=== PATIENT | female | born 1990 | race Caucasian/White ===

== ENCOUNTER 2020-02-17 11:31 | Outpatient (CLI) | payer BC | END 2020-02-17 11:32 | disposition home or self-care (01) | LOC: COV 11:31 | PROVIDERS: ATTEND Family Medicine | DX: Z20.828 Contact with and (suspected) exposure to other viral communicable diseases (principal) ==

== ENCOUNTER 2021-03-11 08:00 | Outpatient (CLI) | payer BC ==
[2021-03-11 17:46] LABS: BASOPHILS # (AUTO) 0.1 10^3/uL (0.0-0.1); BASOPHILS % (AUTO) 0.9 %; EOSINOPHILS # (AUTO) 0.1 10^3/uL (0.0-0.7); EOSINOPHILS % (AUTO) 2.5 %; HCT - HEMATOCRIT 41.3 % (37.0-47.0); HGB - HEMOGLOBIN 13.3 g/dL (12.0-16.0); LYMPHOCYTES # (AUTO) 1.9 10^3/uL (1.5-3.5); LYMPHOCYTES % (AUTO) 34.2 %; MEAN CORPUSCULAR HEMOGLOBIN 27.4 pg (27.0-31.0); MEAN CORPUSCULAR HGB CONC 32.2 g/dL (32.0-36.0); MONOCYTES # (AUTO) 0.5 10^3/uL (0.0-1.0); MONOCYTES % (AUTO) 8.3 %; NEUTROPHILS % (AUTO) 53.9 %; PLT - PLATELET COUNT 248 10^3/uL (130-450); RED BLOOD COUNT 4.86 10^6/uL (4.20-5.40); RED CELL DISTRIBUTION WIDTH 12.5 % (12.0-15.0); WHITE BLOOD COUNT 5.6 x10^3/uL (4.8-10.8)
[2021-03-11 18:10] LABS: ALBUMIN 5.1 g/dL (3.2-5.5); ALBUMIN/GLOBULIN RATIO 1.8 (1.0-2.2); BILIRUBIN,TOTAL 0.9 mg/dL (0.2-1.0); CALCIUM 9.9 mg/dL (8.5-10.3); CREATININE 0.6 mg/dL (0.4-1.0); POTASSIUM 4.3 mmol/L (3.5-5.0); TOTAL PROTEIN 7.9 g/dL (6.7-8.2)
[2021-03-11 19:20] LABS: THYROID STIMULATING HORMONE 2.08 uIU/mL (0.34-5.60)
== END 2021-03-11 23:59 | disposition home or self-care (01) ==
LOC: LAB.S 08:00
PROVIDERS: ATTEND Physician Assistant
DX: R00.2 Palpitations (principal); Z86.2 Personal history of diseases of the blood and blood-forming organs and certain disorders involving the immune mechanism
CPT/HCPCS: 36415; 80053; 84443; 85025

== ENCOUNTER 2023-01-04 10:46 | Emergency (ER) | payer BC ==
[2023-01-04 12:19] LABS: BILIRUBIN,URINE NEGATIVE (NEGATIVE); CLARITY,URINE HAZY (CLEAR); GLUCOSE, URINE (UA) NEGATIVE (NEGATIVE); KETONES,URINE (UA) TRACE mg/dL (NEGATIVE); LEUKOCYTE ESTERASE, URINE NEGATIVE (NEGATIVE); NITRITE,URINE NEGATIVE (NEGATIVE); OCCULT BLOOD,URINE LARGE (NEGATIVE); PH,URINE 6.5 PH (5.0-7.5); PROTEIN,URINE NEGATIVE (NEGATIVE); UROBILINOGEN,URINE 0.2 (NORMAL) E.U./dL (NORMAL)
[2023-01-04 12:21] LABS: HCG UR QUAL NEGATIVE
[2023-01-04 12:29] LABS: WBC,URINE 0-3 /HPF (0-5)
[2023-01-04 12:30] LABS: BACTERIA,URINE Few /HPF (None Seen); RBC,URINE TNTC /HPF (0-5); SQUAMOUS EPITHELIAL CELL,UR MOD Squamous (<= Few)
--- NOTE | 2023-01-04 13:59 | CT Report ---
PROCEDURE: ABDOMEN/PELVIS WO INDICATIONS: R flank pain TECHNIQUE: A CT scan of the abdomen and pelvis was performed without the use of intravenous contrast. Images we re recorded and evaluated at appropriate window settings. Reformats: coronal and sagittal. For radiat ion dose reduction, the following was used: automated exposure control, adjustment of mA and/or kV ac cording to patient size. COMPARISON: None. FINDINGS: Image quality: Excellent. Lung bases and heart: Unremarkable. Liver: No solid mass. Gallbladder and biliary tree: Unremarkable Spleen: No splenomegaly. Pancreas: No pancreatic ductal dilation. Adrenals: No adrenal nodule. Kidneys and ureters: There is moderate right hydronephrosis and hydroureter. Punctate calcification i s present at the right ureterovesicular junction. Bowel and peritoneum: No bowel distension. No pathologic free fluid. Lymph nodes: No central or retroperitoneal adenopathy. Vessels: No infrarenal aortic aneurysm. PELVIS Reproductive organs: Unremarkable. Bladder: No wall thickness, accounting for underdistention. Pelvic lymph nodes: No pelvic adenopathy by size criteria. Bones: No aggressive osseous abnormality. Other: No significant ventral or inguinal hernia. IMPRESSION: Moderate right hydronephrosis and hydroureter secondary to punctate calcification at the right ureter ovesicular junction. Reviewed by: Alem Ngo MD on 01/04/2023 1:58 PM PDT Approved by: Alem Ngo MD on 01/04/2023 1:58 PM PDT Station ID: [id number]
--- NOTE | 2023-01-04 14:25 | ED Physician Documentation ---
PD HPI FEMALE - Stated complaint Stated Complaint: BACK PX - Chief complaint Chief Complaint: Abd Pain - History obtained from History obtained from: Patient - Additional information Additional information: The patient comes to the emergency department chief complaint of right flank pain. She states that it began yesterday evening but seem fairly mild and she did not think too much of it. She went to bed and woke up in the night and still had vague pain. However, this morning, the pain intensified and patient states she developed some nausea but did not vomit. No fevers or chills. She did not notice any dysuria or any gross blood in her urine. Patient states that now the pain has subsided and is pretty much gone but she has never had anything like this before. She is otherwise healthy and has otherwise been well. No other complaints at this time. PD PAST MEDICAL HISTORY - Past Medical History Past Medical History: No - Past Surgical History Past Surgical History: No - Present Medications Home Medications: Ambulatory Orders Medication Instructions Recorded Confirmed No Known Home Medications 01/04/23 01/04/23 - Allergies Allergies/Adverse Reactions: Allergies Allergy/AdvReac Type Severity Reaction Status Date / Time amoxicillin Allergy Anaphylaxis Verified 01/04/23 10:54 Penicillins Allergy Anaphylaxis Verified 01/04/23 10:54 - Social History Does the pt smoke?: No Smoking Status: Never smoker PD ED PE NORMAL - Vitals Vital signs reviewed: Yes - General General: Alert and oriented X 3, No acute distress, Well developed/nourished - HEENT HEENT: Atraumatic, PERRL, EOMI, Moist mucous membranes - Neck Neck: Supple, no meningeal sign - Cardiac Cardiac: RRR, No murmur - Respiratory Respiratory: No respiratory distress, Clear bilaterally - Abdomen Abdomen: Soft, Non tender, Non distended - Back Back: No CVA TTP - Derm Derm: Normal color, Warm and dry, No rash - Extremities Extremities: No deformity - Neuro Neuro: Alert and oriented X 3 - Psych Psych: Normal mood, Normal affect Results - Vitals Vitals: Vital Signs - 24 hr 01/04/23 01/04/23 10:50 14:31 Temperature 36.7 C 36.7 C Heart Rate 83 84 Respiratory 20 18 Rate Blood Pressure 107/72 110/65 O2 Saturation 99 98 - Labs Labs: Laboratory Tests 01/04/23 11:00 Urine Color DARK YELLOW Urine Clarity HAZY Urine pH 6.5 Ur Specific [place] 1.020 Urine Protein NEGATIVE Urine Glucose (UA) NEGATIVE Urine Ketones TRACE Urine Occult Blood LARGE H Urine Nitrite NEGATIVE Urine Bilirubin NEGATIVE Urine Urobilinogen 0.2 (NORMAL) Ur Leukocyte Esterase NEGATIVE Urine RBC TNTC H Urine WBC 0-3 Ur Squamous Epith Cells MOD Squamous H Urine Bacteria Few Ur Microscopic Review INDICATED Urine Culture Comments NOT INDICATED Urine HCG, Qual NEGATIVE - Rads (name of study) CT abdomen pelvis no contrast Relevant Findings:: Final report received, See rad report (Punctate calculus at the right UVJ with mild hydroureter.) PD Medical Decision Making - ED course Complexity details: reviewed results, re-evaluated patient, considered differential, d/w patient ED course: The patient's urinalysis showed blood but otherwise negative. CT scan showed a punctate kidney stone that was at the right UVJ with no stones further up. The patient remained asymptomatic throughout her stay in the emergency department. We have discussed the need to drink plenty of fluids, and the usual indications for return. Departure - Departure Disposition: 01 Home, Self Care Clinical Impression: Kidney stone on right side Condition: Stable Instructions: ED Stone Renal W Colic Comments: An extremely tiny kidney stone was noted to be at the junction of your ureter and bladder. This is most likely the cause of the right flank pain that you are having, and should pass any time if it has not already. No other stones were noted in your kidneys. It is possible that you could form stones at a later date but you can prevent this by drinking plenty of fluids. Please be sure to drink lots of fluids throughout the next couple days to be sure this tiny stone flushes out. Please follow-up with your primary doctor as needed. Forms: PCP List Discharge Date/Time: 01/04/23 14:32
[2023-01-04 14:39] VITALS: BP 110/65; O2SAT 98
== END 2023-01-04 14:32 | disposition home or self-care (01) ==
LOC: ED 10:46
DX: N13.2 Hydronephrosis with renal and ureteral calculous obstruction (principal)
CPT/HCPCS: 81001; 81003; 81025; 87086; 99283; 99284

== ENCOUNTER 2023-07-01 10:29 | Outpatient (CLI) | payer BC ==
[2023-07-01 14:44] LABS: BASOPHILS % (AUTO) 0.9 %; EOSINOPHILS # (AUTO) 0.2 10^3/uL (0.0-0.7); EOSINOPHILS % (AUTO) 4.3 %; HCT - HEMATOCRIT 35.4 % (37.0-47.0); HGB - HEMOGLOBIN 11.2 g/dL (12.0-16.0); LYMPHOCYTES # (AUTO) 1.8 10^3/uL (1.5-3.5); LYMPHOCYTES % (AUTO) 38.9 %; MEAN CORPUSCULAR HGB CONC 31.6 g/dL (32.0-36.0); MEAN CORPUSCULAR VOLUME 82.3 fL (81.0-99.0); MEAN PLATELET VOLUME 10.9 fL (7.9-10.8); MONOCYTES # (AUTO) 0.4 10^3/uL (0.0-1.0); MONOCYTES % (AUTO) 8.1 %; NEUTROPHILS # (AUTO) 2.2 10^3/uL (1.5-6.6); NEUTROPHILS % (AUTO) 47.6 %; PLT - PLATELET COUNT 200 10^3/uL (130-450); RED CELL DISTRIBUTION WIDTH 13.2 % (12.0-15.0); WHITE BLOOD COUNT 4.7 x10^3/uL (4.8-10.8)
[2023-07-01 15:48] LABS: THYROID STIMULATING HORMONE 1.24 uIU/mL (0.34-5.60)
[2023-07-01 16:28] LABS: FERRITIN 3.9 ng/mL (11.0-306.8)
== END 2023-07-01 10:30 | disposition home or self-care (01) ==
LOC: LAB.S 10:29
PROVIDERS: ATTEND Nurse Practitioner
DX: R42 Dizziness and giddiness (principal)
CPT/HCPCS: 36415; 82728; 84439; 84443; 85025

== ENCOUNTER 2023-07-14 20:08 | Emergency (ER) | payer BC ==
[2023-07-14 20:24] VITALS: BP 110/64
[2023-07-14 20:39] LABS: BASOPHILS % (AUTO) 0.6 %; EOSINOPHILS # (AUTO) 0.2 10^3/uL (0.0-0.7); EOSINOPHILS % (AUTO) 4.3 %; HCT - HEMATOCRIT 35.5 % (37.0-47.0); HGB - HEMOGLOBIN 11.1 g/dL (12.0-16.0); LYMPHOCYTES # (AUTO) 1.7 10^3/uL (1.5-3.5); LYMPHOCYTES % (AUTO) 33.9 %; MEAN CORPUSCULAR HGB CONC 31.3 g/dL (32.0-36.0); MEAN CORPUSCULAR VOLUME 83.1 fL (81.0-99.0); MEAN PLATELET VOLUME 10.1 fL (7.9-10.8); MONOCYTES # (AUTO) 0.4 10^3/uL (0.0-1.0); MONOCYTES % (AUTO) 7.4 %; NEUTROPHILS # (AUTO) 2.7 10^3/uL (1.5-6.6); NEUTROPHILS % (AUTO) 53.6 %; PLT - PLATELET COUNT 194 10^3/uL (130-450); RED BLOOD COUNT 4.27 10^6/uL (4.20-5.40); RED CELL DISTRIBUTION WIDTH 13.7 % (12.0-15.0); WHITE BLOOD COUNT 5.1 x10^3/uL (4.8-10.8)
[2023-07-14 20:42] VITALS: O2SAT 98
[2023-07-14 20:59] LABS: HCG,QUALITATIVE BLOOD NEGATIVE
[2023-07-14 21:01] LABS: ALBUMIN 4.4 g/dL (3.2-5.5); ALBUMIN/GLOBULIN RATIO 1.8 (1.0-2.2); ALKALINE PHOSPHATASE 45 IU/L (42-121); ALT ALANINE AMINOTRANSFERASE 9 IU/L (10-60); AST ASPARTATE AMINOTRANSFERASE 13 IU/L (10-42); BILIRUBIN,TOTAL 0.2 mg/dL (0.2-1.0); BUN - BLOOD UREA NITROGEN 11 mg/dL (6-20); CARBON DIOXIDE - CO2 28 mmol/L (21-32); CHLORIDE 105 mmol/L (101-111); CREATININE 0.7 mg/dL (0.6-1.3); GFR - MDRD 96 (>89); GLUCOSE 102 mg/dL (74-104); LIPASE 38 U/L (11-82); MAGNESIUM 1.6 mg/dL (1.7-2.3); SODIUM 139 mmol/L (135-145); TOTAL PROTEIN 6.8 g/dL (6.4-8.9)
--- NOTE | 2023-07-14 21:37 | Ultrasound Report ---
PROCEDURE: Abdomen Limited INDICATIONS: RUQ pain with nausea and vomiting TECHNIQUE: Real-time focused scanning was performed of the abdomen, with image documentation. COMPARISONS: None. FINDINGS: Liver: Liver is normal in size and homogeneous in echotexture. Gallbladder: The gallbladder is normal without stones, sludge, wall thickening, or pericholecystic fl uid. No sonographic Mauro's sign per the technologist. Biliary ducts: Intrahepatic bile ducts are non-dilated. Extrahepatic bile duct caliber measures 4 m m. Normal is 6-7 mm or less in diameter, or 10 mm or less post-cholecystectomy. Pancreas: Visualized portions of the pancreas are sonographically normal. Right kidney: Normal in size and echotexture. Right kidney measures 10.1 cm long. No hydronephrosis or nephrolithiasis. No solid masses. No complex renal cystic lesions which require follow-up. IVC: Intrahepatic inferior vena cava is patent. Miscellaneous: No free abdominal fluid. IMPRESSION: No visible right upper quadrant abnormalities. Reviewed by: Alisa Tellez MD on 07/14/2023 9:35 PM PDT Approved by: Alisa Tellez MD on 07/14/2023 9:35 PM PDT Station ID: [id number]
--- NOTE | 2023-07-14 21:40 | ED Physician Documentation ---
History of Present Illness - Stated complaint Stated Complaint: ABD PX - Chief complaint Chief Complaint: Abd Pain - History obtained from History obtained from: Patient - Additonal information Additional information: The pt comes to the ED with CC of nausea, vomiting, and upper abdominal pain that started 2 days ago. She denies any h/o gallbladder issues. No h/o GERD or ulcers. She states she has not had fevers, chills, dysuria, or change in bowel habits. No other complaints at this time. PD PAST MEDICAL HISTORY - Past Medical History Other Past Medical History: iron deficiency - Past Surgical History Past Surgical History: No - Present Medications Home Medications: Ambulatory Orders Medication Instructions Recorded Confirmed Omeprazole 20 mg PO DAILY #30 tab 07/14/23 - Allergies Allergies/Adverse Reactions: Allergies Allergy/AdvReac Type Severity Reaction Status Date / Time amoxicillin Allergy Anaphylaxis Verified 07/14/23 20:19 Penicillins Allergy Anaphylaxis Verified 07/14/23 20:19 - Social History Does the pt smoke?: No Smoking Status: Never smoker Does the pt drink ETOH?: No Does the pt have substance abuse?: No PD ED PE NORMAL - Vitals Vital signs reviewed: Yes - General General: Alert and oriented X 3, No acute distress, Well developed/nourished - HEENT HEENT: Atraumatic, PERRL, EOMI, Moist mucous membranes - Neck Neck: Supple, no meningeal sign - Cardiac Cardiac: RRR, No murmur - Respiratory Respiratory: No respiratory distress, Clear bilaterally - Abdomen Abdomen: Soft, Non distended, Other (mild epigastric tenderness, no rebound or guarding.) - Derm Derm: Normal color, Warm and dry, No rash - Extremities Extremities: No deformity, No edema - Neuro Neuro: Alert and oriented X 3 - Psych Psych: Normal mood, Normal affect Results - Vitals Vitals: Oxygen O2 Source Room air - Labs Labs: Laboratory Tests 07/14/23 07/14/23 20:34 20:34 WBC 5.1 RBC 4.27 Hgb 11.1 L Hct 35.5 L MCV 83.1 MCH 26.0 L MCHC 31.3 L RDW 13.7 Plt Count 194 MPV 10.1 Neut # (Auto) 2.7 Lymph # (Auto) 1.7 Boyd # (Auto) 0.4 Eos # (Auto) 0.2 Baso # (Auto) 0.0 Absolute Nucleated RBC 0.00 Nucleated RBC % 0.0 Sodium 139 Potassium 4.0 Chloride 105 Carbon Dioxide 28 Anion Gap 6.0 BUN 11 Creatinine 0.7 Estimated GFR (MDRD) 96 Glucose 102 Calcium 10.0 Magnesium 1.6 L Total Bilirubin 0.2 AST 13 ALT 9 L Alkaline Phosphatase 45 Total Protein 6.8 Albumin 4.4 Globulin 2.4 Albumin/Globulin Ratio 1.8 Lipase 38 Serum HCG, Qual NEGATIVE - Rads (name of study) RUQ US Relevant Findings:: Final report received, See rad report (neg) PD Medical Decision Making - ED course Complexity details: reviewed results, re-evaluated patient, considered differential, d/w patient ED course: The pt was worked up with labs, including CBC and ER abd panel. Her WBC count was normal, as were lipase and LFTs. US showed no gallstones or cholecystitis. I have d/w pt that her work-up is negative, and this most likely represents a viral illness. However, if she has recurrent sx, or if these sx do not resolve in the next week, she should talk to her PCP about getting referred for endoscopy. We have discussed antacids, antiemetics, and the usual indications for return. Departure - Departure Disposition: 01 Home, Self Care Clinical Impression: Abdominal pain Qualifiers: Abdominal location: upper abdomen, unspecified Qualified Code(s): R10.10 - Upper abdominal pain, unspecified Condition: Stable Instructions: ED Abdominal Pain Female Non-Specific Abdominal Pain Prescriptions: Omeprazole 20 mg PO DAILY #30 tab Comments: Your laboratory studies actually look really good tonight, as does your ultrasound. Hopefully this is just a viral illness or some transient stomach irritation causing your symptoms, but it is possible that you could have some more persistent inflammation of your stomach lining that could lead to an ulcer. Since the symptoms have been so recent to come on, it is hard to know at this point in time. For now, as we have discussed, it is a good idea for you to try a clear liquid diet for 24 hours and then just take simple starches for a couple days after that. This could include saltine or oyster crackers, and Ramen noodles. You should also call first thing tomorrow to make an appointment for follow-up with [facility], since you are going to be leaving the country soon. That way, when you get back, if you are still having symptoms, you can see [facility] and talk about getting an appointment for an endoscopy and possibly a GI referral. You may take the Zofran that you have at home before eating to see if this helps settle your stomach down. A prescription for omeprazole has been electronically transmitted to the [facility] pharmacy in [place]. You should pick this up and take it each day to help settle your stomach, as well. Forms: PCP List Discharge Date/Time: 07/14/23 21:50
== END 2023-07-14 21:50 | disposition home or self-care (01) ==
LOC: ED 20:08
DX: R10.10 Upper abdominal pain, unspecified (principal); R11.2 Nausea with vomiting, unspecified
CPT/HCPCS: 36415; 80053; 83690; 83735; 84703; 85025; 99283; 99284

== ENCOUNTER 2024-01-03 11:13 | Outpatient (CLI) | payer BC ==
[2024-01-03 15:11] LABS: EOSINOPHILS # (AUTO) 0.1 10^3/uL (0.0-0.7); HCT - HEMATOCRIT 35.9 % (37.0-47.0); HGB - HEMOGLOBIN 11.6 g/dL (12.0-16.0); LYMPHOCYTES # (AUTO) 1.5 10^3/uL (1.5-3.5); LYMPHOCYTES % (AUTO) 38.4 %; MEAN CORPUSCULAR HEMOGLOBIN 26.9 pg (27.0-31.0); MEAN CORPUSCULAR HGB CONC 32.3 g/dL (32.0-36.0); MEAN CORPUSCULAR VOLUME 83.3 fL (81.0-99.0); MEAN PLATELET VOLUME 10.9 fL (7.9-10.8); MONOCYTES # (AUTO) 0.4 10^3/uL (0.0-1.0); MONOCYTES % (AUTO) 9.3 %; NEUTROPHILS # (AUTO) 1.9 10^3/uL (1.5-6.6); PLT - PLATELET COUNT 191 10^3/uL (130-450); RED BLOOD COUNT 4.31 10^6/uL (4.20-5.40); RED CELL DISTRIBUTION WIDTH 13.7 % (12.0-15.0)
== END 2024-01-03 11:14 | disposition home or self-care (01) ==
LOC: LAB.S 11:13
PROVIDERS: ATTEND Nurse Practitioner
DX: D50.9 Iron deficiency anemia, unspecified (principal)
CPT/HCPCS: 36415; 82728; 85025